=== PATIENT | female | born 1970 | race Caucasian/White ===

== ENCOUNTER 2017-05-07 13:08 | Emergency (ER) | payer BC ==
[~2017-05-07] VITALS: Ht 175.3 cm; Wt 77.1 kg
[~2017-05-07 13:08] MED LIST: ACETAMINOPHEN-1 EAC1 PO; CODEINE-GUAIFE120 ML PO; EVAMIST8.1 ML SPRAY; GUAIFENESIN-CO118 ML PO; HRT BASE1 GM VAG; LEVAQUIN 500 M500 M2 PO; LIDOCAINE VISC100 ML TOP; MEDROLDOSEPACK PO; MUCINEX TA600 MG/TA2 PO; PREDNISONE 20 M20 MG PO; PROMETHAZINE V473 ML PO; TESSALON PERLE100 MG PO; VENTOLIN HFA 1818 GM INH; ZPAK PO
[2017-05-07 13:49] LABS: INFLUENZA A ANTIGEN None Detected (None Detect); INFLUENZA B ANTIGEN None Detected (None Detect)
[2017-05-07 14:14] LABS: ABSOLUTE MONOCYTES 0.3 thou/uL (0.0-1.2); ABSOLUTE NEUTROPHILS 4.8 thou/uL (1.6-8.1); BASOPHILS 0.3 %; EOSINOPHILS 0.8 %; HEMATOCRIT 40.6 % (37.0-47.0); HEMOGLOBIN 13.5 gm/dL (12.0-15.0); LYMPHOCYTES 15.6 %; MCH 27.8 pg (26.0-34.0); MCHC 33.3 g/dL (28.0-37.0); MCV 83.3 fL (80.0-100.0); MONOCYTES 4.9 %; MPV 7.5 fl. (7.2-11.1); NUCLEATED RBCS 0 /100WBC; PLATELET COUNT* 206 thou/uL (150-400); POLYS 78.4 %; RBC 4.87 mil/uL (4.20-5.00); RDW-CV 13.5 % (10.5-14.5); WBC 6.1 thou/uL (4.0-11.0)
[2017-05-07 14:23] LABS: CALCIUM 8.2 mg/dL (8.5-10.1); CREATININE 0.7 mg/dL (0.6-1.3); POTASSIUM 3.4 mmol/L (3.5-5.1)
[2017-05-07 15:50] VITALS: BP 125/89
== END 2017-05-07 15:50 | disposition home or self-care (01) ==
LOC: M.ERS 13:08
PROVIDERS: Nurse Practitioner Family
DX: B34.9 Viral infection, unspecified (principal); J02.9 Acute pharyngitis, unspecified; F10.99 Alcohol use, unspecified with unspecified alcohol-induced disorder; Z90.710 Acquired absence of both cervix and uterus; Z88.8 Allergy status to other drugs, medicaments and biological substances

== ENCOUNTER 2017-11-24 15:42 | Emergency (ER) | payer BC ==
[~2017-11-24] VITALS: Ht 175.3 cm; Wt 81.7 kg
[2017-11-24 16:08] LABS: ABSOLUTE BASOPHILS 0.1 thou/uL (0.0-0.2); ABSOLUTE EOSINOPHILS 0.1 thou/uL (0.0-0.7); ABSOLUTE LYMPHOCYTES 1.9 thou/uL (0.8-5.3); ABSOLUTE MONOCYTES 0.5 thou/uL (0.0-1.2); BASOPHILS 0.7 %; HEMATOCRIT 42.6 % (37.0-47.0); HEMOGLOBIN 14.2 gm/dL (12.0-15.0); LYMPHOCYTES 22.6 %; MCH 28.3 pg (26.0-34.0); MCHC 33.3 g/dL (28.0-37.0); MCV 84.8 fL (80.0-100.0); MONOCYTES 5.6 %; NUCLEATED RBCS 0 /100WBC; PLATELET COUNT* 268 thou/uL (150-400); POLYS 70.1 %; RBC 5.02 mil/uL (4.20-5.00); RDW-CV 13.6 % (10.5-14.5); WBC 8.6 thou/uL (4.0-11.0)
[2017-11-24 16:16] LABS: ANION GAP 8 mmol/L (7-16); BUN 10 mg/dL (7-18); CALCIUM 8.8 mg/dL (8.5-10.1); CHLORIDE 108 mmol/L (98-107); CO2 29 mmol/L (21-32); CREATININE 0.8 mg/dL (0.6-1.3); GLUCOSE 90 mg/dL (70-99); POTASSIUM 3.9 mmol/L (3.5-5.1); SODIUM 145 mmol/L (136-145)
[2017-11-24 16:19] LABS: APTT 30.4 Seconds (25.0-31.3); INR 1.1; PROTIME 10.6 Seconds (9.20-11.50)
[2017-11-24 16:36] LABS: ALBUMIN 3.7 g/dL (3.4-5.0); ALKALINE PHOSPHATASE 82 U/L (46-116); CK-MB MASS 0.8 ng/mL (<0.5-3.6); LIPASE 118 U/L (73-393); MAGNESIUM 1.9 mg/dL (1.8-2.4); NT-PRO BRAIN NAT PEPTIDE 82 pg/mL (<300); SGOT 17 U/L (15-37); SGPT 29 U/L (30-65); TOTAL BILIRUBIN 0.4 mg/dL (<0.1-1.0); TOTAL PROTEIN 7.4 g/dL (6.4-8.2); TROPONIN-I LEVEL <0.06 ng/mL (<0.06)
[2017-11-24 16:47] VITALS: BP 135/85
--- NOTE | 2017-11-25 10:47 | EKG ---
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 KIM : 1970 Requested By: Tyrell Alba Order Number: [id number] MD: Jitendra Mendoza Measurements Intervals [place] Rate: 96 P: 44 W[place]: 128 QRS: 15 QRSD: 95 T: 35 QT: 343 QTc: 434 Interpretive Statements Sinus rhythm Probable left atrial enlargement Left ventricular hypertrophy No previous ECG available for comparison Electronically Signed On 11-25-2017 10:47:41 CDT by Jitendra Mendoza [email or web address] <ELECTRONICALLY SIGNED> By: Jitendra Mendoza MD, [facility] 11/25/17 1047 1548 [id number] Jitendra Mendoza MD, FACC /EPI
== END 2017-11-24 16:48 | disposition home or self-care (01) ==
LOC: M.ERS 15:42
PROVIDERS: Emergency Medicine
DX: R07.89 Other chest pain (principal); F41.9 Anxiety disorder, unspecified; N64.4 Mastodynia; Z90.710 Acquired absence of both cervix and uterus; Z88.8 Allergy status to other drugs, medicaments and biological substances